=== PATIENT | female | born 1935 | race Caucasian/White ===

== ENCOUNTER 2018-12-18 13:52 | Outpatient (CLI) | payer MEDICARE ==
[~2018-12-18 13:52] MED LIST: ASPI-496 PO; ESTR0.5T PO; FURO-93 PO; LEVO112T4 PO; LIOTHYRONINE PO; MULT-6 PO; OMEG500C3 PO; OMEP-110 PO; POLY17PO5 PO; PRAM0.25 PO; RED600CA2 PO; TOLT2TAB4 PO; TRAM-47 PO
[2018-12-18] MEDS ORDERED: CA C1TAB39 PO (14:45)
[2018-12-18] MEDS ORDERED: MELO15TA24 PO (14:45)
[2018-12-18] MEDS ORDERED: MV-M1CAP18 PO (14:45)
[2018-12-18] MEDS ORDERED: PRAM0.5T PO (14:45)
[2018-12-18] MEDS ORDERED: LEVO88TA4 PO (14:45)
[2018-12-18] MEDS ORDERED: LIOT5TAB PO (14:45)
[2018-12-18] MEDS ORDERED: CHOL5000 PO (14:45)
[2018-12-18] MEDS ORDERED: B CO1TAB14 PO (14:45)
[2018-12-18] MEDS ORDERED: METO25TA91 PO (14:45)
[2018-12-18] MEDS ORDERED: SOLI10TA2 PO (14:45)
[2018-12-18] MEDS ORDERED: RED600CA2 PO (14:45)
[2018-12-18] MEDS ORDERED: ACET325T14 PO (14:45)
[2018-12-18] MEDS ORDERED: POTA99TA2 PO (14:45)
[2018-12-18 15:50] LABS: ALBUMIN 3.7 g/dL (3.4-5.0); ANION GAP 3 mmol/L (5-15); CALCIUM 9.3 mg/dL (8.5-10.1); CHLORIDE 110 mmol/L (98-107)
[2018-12-18 15:53] LABS: ALANINE AMINOTRANSFERASE 25 U/L (12-78); ALKALINE PHOSPHATASE 53 U/L (45-117); BILIRUBIN,TOTAL 0.4 mg/dL (0.2-1.0); CREATININE 0.98 mg/dL (0.55-1.02); TOTAL PROTEIN 7.2 g/dL (6.4-8.2)
== END 2018-12-18 23:59 | disposition home or self-care (01) ==
LOC: STAR 13:52
PROVIDERS: ATTEND Surgery
DX: Z01.812 Encounter for preprocedural laboratory examination (principal); C50.412 Malignant neoplasm of upper-outer quadrant of left female breast
CPT/HCPCS: 36415; 80053

== ENCOUNTER 2018-12-27 10:39 | Day surgery (SDC) | payer MEDICARE ==
[~2018-12-27] VITALS: Ht 156.2 cm; Wt 95.0 kg
[2018-12-27 12:39] VITALS: BP 132/75
== END 2018-12-27 20:50 | disposition home or self-care (01) ==
LOC: OR 10:39 → 4NOR 18:51 → OUT 20:50
PROVIDERS: ATTEND Surgery
DX: C50.812 Malignant neoplasm of overlapping sites of left female breast (principal); N65.1 Disproportion of reconstructed breast; M79.7 Fibromyalgia; G47.33 Obstructive sleep apnea (adult) (pediatric); I27.20 Pulmonary hypertension, unspecified; E66.9 Obesity, unspecified; Z68.37 Body mass index [BMI] 37.0-37.9, adult; Z17.0 Estrogen receptor positive status [ER+]; Z79.890 Hormone replacement therapy; Z79.899 Other long term (current) drug therapy; Z88.5 Allergy status to narcotic agent; Z88.8 Allergy status to other drugs, medicaments and biological substances; Z98.1 Arthrodesis status; Z90.49 Acquired absence of other specified parts of digestive tract; Z90.710 Acquired absence of both cervix and uterus; Z80.0 Family history of malignant neoplasm of digestive organs
CPT/HCPCS: 19281; 19301; 19318; 19366; 38525; 38792; 76098; 88305; 88307; 88329; 93005; A9541; C1729; J0330; J0690; J1100; J2370; J2405; J2704; J3010; J3490; J7120; Q0162; G0378

== ENCOUNTER → 2019-04-24 | Outpatient (CLI) | payer MEDICARE ==
[~2019-04-24] MED LIST changes: +ACET325T14 PO; +B CO1TAB14 PO; +CA C1TAB39 PO; +CHOL5000 PO; +LEVO88TA4 PO; +LIOT5TAB11 PO; +MELO15TA24 PO; +METO25TA91 PO; +MV-M1CAP18 PO; +POTA99TA2 PO; +PRAM0.5T PO; +SOLI10TA2 PO
== END | disposition home or self-care (01) ==
LOC: CFH 09:39
PROVIDERS: ATTEND Internal Medicine Hematology & Oncology
DX: M85.88 Other specified disorders of bone density and structure, other site (principal); C50.812 Malignant neoplasm of overlapping sites of left female breast; Z78.0 Asymptomatic menopausal state
CPT/HCPCS: 77080

== ENCOUNTER 2019-07-26 08:29 | Outpatient (CLI) | payer MEDICARE | END 2019-07-26 23:59 | disposition home or self-care (01) | LOC: ROC 08:29 | PROVIDERS: ATTEND Radiology Radiation Oncology | DX: C50.412 Malignant neoplasm of upper-outer quadrant of left female breast (principal) | CPT/HCPCS: G0463 ==

== ENCOUNTER → 2019-12-05 | Outpatient (CLI) | payer MEDICARE | END | disposition home or self-care (01) | LOC: CFH 10:21 | PROVIDERS: ATTEND Internal Medicine | DX: R06.02 Shortness of breath (principal) | CPT/HCPCS: 71250 ==

== ENCOUNTER 2020-02-20 08:24 | Outpatient (CLI) | payer MEDICARE | END 2020-02-20 23:59 | disposition home or self-care (01) | LOC: ROC 08:24 | PROVIDERS: ATTEND Radiology Radiation Oncology | DX: Z08 Encounter for follow-up examination after completed treatment for malignant neoplasm (principal); Z85.3 Personal history of malignant neoplasm of breast | CPT/HCPCS: G0463 ==

== ENCOUNTER 2020-04-14 10:27 | Outpatient (CLI) | payer MEDICARE ==
[2020-04-14] MEDS ORDERED: METO5TAB5 PO (11:11)
[2020-04-14] MEDS ORDERED: MV-M1CAP18 PO (11:11)
[2020-04-14] MEDS ORDERED: RED600TA PO (11:11)
[2020-04-14] MEDS ORDERED: Vitamin D3 PO (11:11)
[2020-04-14] MEDS ORDERED: MULT-449 PO (11:11)
[2020-04-14] MEDS ORDERED: TORS20TA2 PO (11:11)
[2020-04-14] MEDS ORDERED: CALC1TAB41 PO (11:11)
== END 2020-04-14 23:59 | disposition home or self-care (01) ==
LOC: STAR 10:27
PROVIDERS: ATTEND Internal Medicine Gastroenterology
DX: Z01.818 Encounter for other preprocedural examination (principal); Z20.828 Contact with and (suspected) exposure to other viral communicable diseases
CPT/HCPCS: 36415; 80053; 87635; 93005

== ENCOUNTER 2020-04-15 06:59 | Day surgery (SDC) | payer MEDICARE ==
[2020-04-14 12:27] LABS: CHLORIDE 97 mmol/L (98-107)
[2020-04-14 12:45] LABS: ALANINE AMINOTRANSFERASE 27 U/L (12-78); ALBUMIN 3.9 g/dL (3.4-5.0); ALKALINE PHOSPHATASE 71 U/L (45-117); ANION GAP 3 mmol/L (5-15); BILIRUBIN,TOTAL 0.8 mg/dL (0.2-1.0); CALCIUM 9.1 mg/dL (8.5-10.1); TOTAL PROTEIN 7.6 g/dL (6.4-8.2)
[~2020-04-15] VITALS: Ht 154.9 cm; Wt 81.7 kg
[~2020-04-15 06:59] MED LIST changes: +CALC1TAB41 PO; +METO5TAB5 PO; +MULT-449 PO; +RED600TA PO; +TORS20TA2 PO; +Vitamin D3 PO
[2020-04-15] MEDS ORDERED: LACTATED RINGERS 1,000 ML IV SCH (08:00)
[2020-04-15] MEDS ORDERED: CHLORHEXIDINE 15 ML UDC MM ONE (08:00)
[2020-04-15] MEDS ORDERED: PROPOFOL 50 ML ONE (08:22)
[2020-04-15 08:27] VITALS: BP 137/79
== END 2020-04-15 10:40 | disposition home or self-care (01) ==
LOC: OUT 06:59
PROVIDERS: ATTEND Internal Medicine Gastroenterology
DX: K59.00 Constipation, unspecified (principal); K62.5 Hemorrhage of anus and rectum; D12.0 Benign neoplasm of cecum; K64.8 Other hemorrhoids; K57.30 Diverticulosis of large intestine without perforation or abscess without bleeding; K29.50 Unspecified chronic gastritis without bleeding; R63.4 Abnormal weight loss; E03.9 Hypothyroidism, unspecified; K21.9 Gastro-esophageal reflux disease without esophagitis; J44.9 Chronic obstructive pulmonary disease, unspecified; I10 Essential (primary) hypertension; G47.33 Obstructive sleep apnea (adult) (pediatric); M79.7 Fibromyalgia; Z68.30 Body mass index [BMI] 30.0-30.9, adult; Z79.1 Long term (current) use of non-steroidal anti-inflammatories (NSAID); Z79.890 Hormone replacement therapy; Z79.899 Other long term (current) drug therapy; Z87.891 Personal history of nicotine dependence; Z88.8 Allergy status to other drugs, medicaments and biological substances; Z91.030 Bee allergy status; Z91.048 Other nonmedicinal substance allergy status; Z90.49 Acquired absence of other specified parts of digestive tract; Z90.710 Acquired absence of both cervix and uterus; Z98.890 Other specified postprocedural states; Z83.71 Family history of colonic polyps
CPT/HCPCS: 36415; 43239; 45385; 80053; 84132; 88305; 93005; J2704; J7120; 88342

== ENCOUNTER 2020-09-16 09:39 | Outpatient (CLI) | payer MEDICARE | END 2020-09-16 23:59 | disposition home or self-care (01) | LOC: ROC 09:39 | PROVIDERS: ATTEND Radiology Radiation Oncology | DX: Z08 Encounter for follow-up examination after completed treatment for malignant neoplasm (principal); Z85.3 Personal history of malignant neoplasm of breast | CPT/HCPCS: G0463 ==